=== PATIENT | female | born 1970 | race Caucasian/White ===

== ENCOUNTER 2020-02-25 00:03 | Inpatient (IN) | payer MEDICAID, OTHER ==
[~2020-02-25] VITALS: Ht 154.9 cm; Wt 86.5 kg
[~2020-02-25 00:03] MED LIST: HYDR-1475 PO; METF-444 PO; PRAV40TA4 PO
[2020-02-25 01:28] LABS: ANION GAP 8 mmol/L (8-16); CALCIUM, TOTAL 9.3 mg/dL (8.8-10.5); CARBON DIOXIDE 21 mmol/L (22-29); CHLORIDE 99 mmol/L (98-107); CREATININE 2.64 mg/dL (0.60-1.30); GLOMERULAR FILTR. RATE CALC 19 mL/min (>60); GLUCOSE,RANDOM 118 mg/dL (70-110); POTASSIUM 5.1 mmol/L (3.5-5.1); SODIUM SERUM 128 mmol/L (136-145); UREA NITROGEN, BLOOD 65 mg/dL (7-18)
[2020-02-25 01:36] LABS: D-DIMER 0.42 mg/L FEU (0.00-0.50); PROTHROMBIN TIME 10.5 SEC (9.4-11.6)
[2020-02-25] MEDS ORDERED: SODIUM CHLORIDE 0.9% 1,000 ML IV ONE (01:45)
[2020-02-25 01:46] LABS: ALANINE AMINOTRANSFERASE 107 U/L (12-78); ALBUMIN 3.3 g/dL (3.4-5.0); ALKALINE PHOSPHATASE 249 U/L (46-116); ASPARTATE AMINOTRANSFERASE 72 U/L (15-37); BILIRUBIN,TOTAL 0.3 mg/dL (0.1-1.0); C-REACTIVE PROTEIN QUANT 6.65 mg/dL (0.00-0.30); CREATINE KINASE, TOTAL ONLY 49 U/L (26-192); FERRITIN 548 ng/mL (8-252); HCG,QUANTITATIVE 1 mIU/mL (0-6); LACTATE DEHYDROGENASE 305 U/L (81-234)
[2020-02-25] MEDS ORDERED: FAMOTIDINE 10 MG/ML 2 ML VIAL IVP ONE (02:00)
[2020-02-25] MEDS ORDERED: PB/HYOSCY/ATR/SCOP/LIDO/MAALOX 55 ML BOTTLE PO ONE (02:00)
[2020-02-25] MEDS ORDERED: ACETAMINOPHEN 500 MG TABLET PO ONE (02:00)
[2020-02-25 02:04] LABS: B-TYPE NATRIURETIC PEPTIDE < 5 pg/mL (0-100)
[2020-02-25] MEDS ORDERED: ACETAMINOPHEN 325 MG TABLET PO PRN (02:15)
[2020-02-25] MEDS ORDERED: ONDANSETRON HCL 4 MG/2 ML VIAL IVP PRN (02:15)
[2020-02-25 02:27] LABS: BASOPHILS % (AUTO) 0.3 % (0.0-2.0); EOSINOPHILS % (AUTO) 0 % (1.0-6.0); HEMATOCRIT 41.4 % (36-46); HEMOGLOBIN 14.2 g/dL (12.0-16.0); LYMPHOCYTES # (AUTO) 1.4 K/uL (1.0-4.8); LYMPHOCYTES % (AUTO) 20.6 % (22.0-44.0); MEAN CORPUSCULAR HGB CONC 34.3 G/dL (31.0-37.0); MEAN CORPUSCULAR VOLUME 87 fL (80-100); MONOCYTES # (AUTO) 0.5 K/uL (0.1-1.0); MONOCYTES % (AUTO) 6.9 % (2.0-9.0); NEUTROPHILS # (AUTO) 4.9 K/uL (1.8-7.7); NEUTROPHILS % (AUTO) 72.2 % (40.0-70.0); PLATELET COUNT (AUTO) 325 K/uL (150-450); RED BLOOD CELL COUNT(AUTO) 4.73 MIL/uL (4.00-5.20)
[2020-02-25 04:22] VITALS: BP 128/75
[2020-02-25 07:35] VITALS: BP 110/72
[2020-02-25 12:50] VITALS: BP 112/68
[2020-02-25 16:35] VITALS: BP 124/65
[2020-02-25] MEDS ORDERED: DEXAMETHASONE 4 MG TABLET PO ONE (16:45)
[2020-02-25 19:33] VITALS: BP 137/96
[2020-02-25] MEDS: DEXAMETHASONE SOD PHOS 4 MG/ML VIAL IVP SCH (22:47)
[2020-02-25] MEDS: HYDROCHLOROTHIAZIDE 25 MG TABLET PO SCH (22:47)
[2020-02-25] MEDS: PRAVASTATIN SODIUM 40 MG TABLET PO SCH (22:47)
[2020-02-26 00:16] VITALS: BP 130/76
[2020-02-26 04:20] VITALS: BP 114/86
[2020-02-26 06:36] LABS: BASOPHILS % (AUTO) 0.3 % (0.0-2.0); EOSINOPHILS % (AUTO) 0 % (1.0-6.0); HEMATOCRIT 36.8 % (36-46); HEMOGLOBIN 12.4 g/dL (12.0-16.0); LYMPHOCYTES # (AUTO) 0.7 K/uL (1.0-4.8); LYMPHOCYTES % (AUTO) 34.9 % (22.0-44.0); MEAN CORPUSCULAR HEMOGLOBIN 29.6 pg (26.0-34.0); MEAN CORPUSCULAR HGB CONC 33.6 G/dL (31.0-37.0); MEAN CORPUSCULAR VOLUME 88 fL (80-100); MONOCYTES # (AUTO) 0.1 K/uL (0.1-1.0); MONOCYTES % (AUTO) 7.7 % (2.0-9.0); NEUTROPHILS # (AUTO) 1.1 K/uL (1.8-7.7); NEUTROPHILS % (AUTO) 57.1 % (40.0-70.0); PLATELET COUNT (AUTO) 348 K/uL (150-450); RED BLOOD CELL COUNT(AUTO) 4.18 MIL/uL (4.00-5.20); RED CELL DISTRIBUTION WIDTH 12.5 % (11.5-14.5)
[2020-02-26 07:20] VITALS: BP 115/79
[2020-02-26 07:30] LABS: ALBUMIN 2.7 g/dL (3.4-5.0); BILIRUBIN,TOTAL 0.2 mg/dL (0.1-1.0); C-REACTIVE PROTEIN QUANT 7.42 mg/dL (0.00-0.30); CALCIUM, TOTAL 9.2 mg/dL (8.8-10.5); CREATININE 2.17 mg/dL (0.60-1.30)
[2020-02-26 07:39] LABS: POTASSIUM 6.1 mmol/L (3.5-5.1)
[2020-02-26] MEDS: HYDROCHLOROTHIAZIDE 25 MG TABLET PO SCH (08:04)
[2020-02-26] MEDS: DEXAMETHASONE SOD PHOS 4 MG/ML VIAL IVP SCH (08:05)
[2020-02-26] MEDS ORDERED: SODIUM POLYSTYRENE SULFONATE 15 GM/60 ML SUSPENSION BOTTLE PO ONE (08:30)
[2020-02-26 10:35] VITALS: BP 122/78
[2020-02-26] MEDS: SODIUM CHLORIDE 0.9% 500 ML IV SCH ×2 (12:59→22:06)
[2020-02-26 15:14] VITALS: BP_SYST 122; BP_SYST 137; BP_DIAS 62; BP_DIAS 74
[2020-02-26 20:42] VITALS: BP 143/86
[2020-02-26] MEDS: PRAVASTATIN SODIUM 40 MG TABLET PO SCH (22:06)
[2020-02-26] MEDS ORDERED: ACETAMINOPHEN 325 MG TABLET PO PRN (22:45)
[2020-02-27] MEDS: SODIUM CHLORIDE 0.9% 500 ML IV SCH (00:20)
[2020-02-27 00:39] VITALS: BP 137/85
[2020-02-27 04:49] VITALS: BP 125/73
[2020-02-27 05:39] LABS: APPEARANCE,URINE CLOUDY (CLEAR); BILIRUBIN,URINE NEGATIVE (NEGATIVE); CREATININE,URINE RANDOM 49.4 mg/dL (30.0-125.0); GLUCOSE, URINE (UA) NEGATIVE (NEGATIVE); KETONES,URINE NEGATIVE (NEGATIVE); LEUKOCYTE ESTERASE ,URINE SMALL (NEGATIVE); NITRATE,URINE NEGATIVE (NEGATIVE); OCCULT BLOOD,URINE SMALL (NEGATIVE); PH,URINE 5.5 (5.0-8.0); PROTEIN,URINE SEE CONFIRM (NEGATIVE); PROTEIN,URINE RANDOM 135 mg/dL (0-11.9); SODIUM,URINE RANDOM 60 mmol/l (20-110); UREA NITROGEN,URINE RANDOM 478 mg/dL (350-1000); UROBILINOGEN,URINE 0.2 mg/dL (<=1.0)
[2020-02-27 05:46] LABS: SULFOSALICYLIC ACID,URINE 3+ (Negative)
[2020-02-27 05:47] LABS: BACTERIA,URINE Moderate /HPF (None Seen); SQUAMOUS EPITHELIAL CELL,UR Few /LPF (None Seen)
[2020-02-27 06:11] LABS: BASOPHILS % (AUTO) 0.2 % (0.0-2.0); EOSINOPHILS % (AUTO) 0 % (1.0-6.0); HEMATOCRIT 33.6 % (36-46); HEMOGLOBIN 11.4 g/dL (12.0-16.0); LYMPHOCYTES # (AUTO) 1.4 K/uL (1.0-4.8); MEAN CORPUSCULAR HEMOGLOBIN 29.5 pg (26.0-34.0); MEAN CORPUSCULAR VOLUME 87 fL (80-100); MONOCYTES # (AUTO) 0.7 K/uL (0.1-1.0); MONOCYTES % (AUTO) 10.3 % (2.0-9.0); NEUTROPHILS % (AUTO) 70.5 % (40.0-70.0); PLATELET COUNT (AUTO) 400 K/uL (150-450); RED BLOOD CELL COUNT(AUTO) 3.87 MIL/uL (4.00-5.20); RED CELL DISTRIBUTION WIDTH 12.8 % (11.5-14.5)
[2020-02-27] MEDS: SODIUM CHLORIDE 0.9% 1,000 ML IV SCH ×2 (06:12→17:50)
[2020-02-27 07:28] LABS: ALBUMIN 2.4 g/dL (3.4-5.0); BILIRUBIN,TOTAL 0.2 mg/dL (0.1-1.0); C-REACTIVE PROTEIN QUANT 2.63 mg/dL (0.00-0.30); CALCIUM, TOTAL 8.4 mg/dL (8.8-10.5); CREATININE 1.99 mg/dL (0.60-1.30); POTASSIUM 4.2 mmol/L (3.5-5.1); TOTAL PROTEIN, SERUM 7.3 g/dL (6.4-8.2)
[2020-02-27] MEDS: DEXAMETHASONE SOD PHOS 4 MG/ML VIAL IVP SCH (09:13)
[2020-02-27 09:51] VITALS: BP 121/73
[2020-02-27 12:55] VITALS: BP 124/67
[2020-02-27 16:03] VITALS: BP 130/87
[2020-02-27 20:12] VITALS: BP 132/74
[2020-02-27] MEDS: PRAVASTATIN SODIUM 40 MG TABLET PO SCH (21:10)
[2020-02-28 00:10] VITALS: BP 150/93
[2020-02-28 05:10] VITALS: BP 140/71
[2020-02-28 07:37] LABS: BASOPHILS % (AUTO) 1.4 % (0.0-2.0); EOSINOPHILS % (AUTO) 0 % (1.0-6.0); HEMATOCRIT 33.8 % (36-46); HEMOGLOBIN 11.6 g/dL (12.0-16.0); LYMPHOCYTES # (AUTO) 1.8 K/uL (1.0-4.8); LYMPHOCYTES % (AUTO) 29.5 % (22.0-44.0); MEAN CORPUSCULAR HEMOGLOBIN 29.9 pg (26.0-34.0); MEAN CORPUSCULAR HGB CONC 34.3 G/dL (31.0-37.0); MEAN CORPUSCULAR VOLUME 87 fL (80-100); MONOCYTES # (AUTO) 0.8 K/uL (0.1-1.0); MONOCYTES % (AUTO) 12.5 % (2.0-9.0); NEUTROPHILS # (AUTO) 3.5 K/uL (1.8-7.7); NEUTROPHILS % (AUTO) 56.6 % (40.0-70.0); PLATELET COUNT (AUTO) 485 K/uL (150-450); RED BLOOD CELL COUNT(AUTO) 3.89 MIL/uL (4.00-5.20); RED CELL DISTRIBUTION WIDTH 12.8 % (11.5-14.5)
[2020-02-28 08:04] LABS: ALBUMIN 2.7 g/dL (3.4-5.0); BILIRUBIN,TOTAL 0.2 mg/dL (0.1-1.0); C-REACTIVE PROTEIN QUANT 1.75 mg/dL (0.00-0.30); CALCIUM, TOTAL 8.7 mg/dL (8.8-10.5); CREATININE 1.82 mg/dL (0.60-1.30); MAGNESIUM 1.9 mg/dL (1.80-2.40); PHOSPHORUS 3.1 mg/dL (2.5-4.9); POTASSIUM 4.2 mmol/L (3.5-5.1); TOTAL PROTEIN, SERUM 7.5 g/dL (6.4-8.2)
[2020-02-28 08:10] VITALS: BP 130/76
[2020-02-28] MEDS: DEXAMETHASONE SOD PHOS 4 MG/ML VIAL IVP SCH (08:19)
[2020-02-28 11:23] VITALS: BP 137/85
[2020-02-28] MEDS ORDERED: INFLUENZA VIRUS VACCINE QVS 2020-21 (6MO+)/PF 60 MCG/0.5 ML SYRINGE IM ONE (12:00)
== END 2020-02-28 19:10 | disposition home or self-care (01) | DRG 178 ==
LOC: EMS 00:05 → 5N 02:00
PROVIDERS: ADMIT Hospitalist; ATTEND Hospitalist
DX: U07.1 COVID-19 (principal); E87.1 Hypo-osmolality and hyponatremia; N17.9 Acute kidney failure, unspecified; E44.0 Moderate protein-calorie malnutrition; E78.5 Hyperlipidemia, unspecified; E11.22 Type 2 diabetes mellitus with diabetic chronic kidney disease; E87.5 Hyperkalemia; I12.9 Hypertensive chronic kidney disease with stage 1 through stage 4 chronic kidney disease, or unspecified chronic kidney disease; N18.9 Chronic kidney disease, unspecified; Z68.36 Body mass index [BMI] 36.0-36.9, adult; Z23 Encounter for immunization
CPT/HCPCS: 76770; 82570; 82728; 83615; 83735; 84100; 84132; 84145; 84156; 84300; 84540; 85379; 86140; 87086; 90686; 93005; J1100; J3490; J7030; J7040; J8540; 36415-L1; 36415-TC; 71045-TC; G0008

== ENCOUNTER 2020-05-15 08:38 | Emergency (ER) | payer MEDICAID ==
[~2020-05-15] VITALS: Ht 152.4 cm; Wt 86.4 kg
[~2020-05-15 08:38] MED LIST changes: -HYDR-1475 PO; +HYDR25TA2 PO
[2020-05-15] MEDS ORDERED: AMLO-257 PO (08:43)
[2020-05-15] MEDS ORDERED: KETOROLAC TROMETHAMINE 60 MG/2 ML VIAL IM ONE (09:45)
[2020-05-15] MEDS ORDERED: HYDROCODONE/ACETAMINOPHEN 5-325 MG TABLET PO ONE ×2 (09:45→10:45)
[2020-05-15 10:43] VITALS: BP 148/91
== END 2020-05-15 10:52 | disposition home or self-care (01) ==
LOC: EMS 08:38
DX: S30.0XXA Contusion of lower back and pelvis, initial encounter (principal); S90.32XA Contusion of left foot, initial encounter; W19.XXXA Unspecified fall, initial encounter; Y93.89 Activity, other specified; Y92.89 Other specified places as the place of occurrence of the external cause; Y99.8 Other external cause status
CPT/HCPCS: 72100; 72170; 73630; 82962; 96372; 99284; J1885

== ENCOUNTER 2020-12-23 17:56 | Emergency (ER) | payer MEDICAID ==
[~2020-12-23] VITALS: Ht 152.4 cm; Wt 90.9 kg
[~2020-12-23 17:56] MED LIST changes: +ACET-2247 PO; +ALLO-45 PO; +AMLO-257 PO; -HYDR25TA2 PO; +LEVO750T68 PO; +PRED20 PO
[2020-12-23 19:45] VITALS: BP 139/88
[2020-12-23 20:24] LABS: COVID AG,FIA SOURCE NASOPHARYNGEAL
== END 2020-12-23 20:00 | disposition home or self-care (01) ==
LOC: EMS 17:56
DX: J02.9 Acute pharyngitis, unspecified (principal); Z20.822 Contact with and (suspected) exposure to COVID-19
CPT/HCPCS: 82962; 87426; 99283; U0003

== ENCOUNTER 2021-02-20 10:58 | Emergency (ER) | payer MEDICAID ==
[~2021-02-20] VITALS: Ht 152.4 cm; Wt 86.0 kg
[2021-02-20 11:12] VITALS: BP 169/56
[2021-02-20 11:38] LABS: BASOPHILS % (AUTO) 0.5 % (0.0-2.0); EOSINOPHILS % (AUTO) 0.6 % (1.0-6.0); HEMATOCRIT 40.7 % (36-46); HEMOGLOBIN 13.3 g/dL (12.0-16.0); LYMPHOCYTES # (AUTO) 2.8 K/uL (1.0-4.8); LYMPHOCYTES % (AUTO) 32.9 % (22.0-44.0); MEAN CORPUSCULAR HEMOGLOBIN 29.5 pg (26.0-34.0); MEAN CORPUSCULAR HGB CONC 32.7 G/dL (31.0-37.0); MEAN CORPUSCULAR VOLUME 90 fL (80-100); MONOCYTES # (AUTO) 0.7 K/uL (0.1-1.0); MONOCYTES % (AUTO) 8.4 % (2.0-9.0); NEUTROPHILS # (AUTO) 4.9 K/uL (1.8-7.7); NEUTROPHILS % (AUTO) 57.6 % (40.0-70.0); PLATELET COUNT (AUTO) 340 K/uL (150-450); RED CELL DISTRIBUTION WIDTH 13.4 % (11.5-14.5)
[2021-02-20 11:44] LABS: ANION GAP 8 mmol/L (8-16); CALCIUM, TOTAL 9.4 mg/dL (8.8-10.5); CARBON DIOXIDE 24 mmol/L (22-29); CHLORIDE 110 mmol/L (98-107); CREATININE 2.14 mg/dL (0.60-1.30); GLOMERULAR FILTR. RATE CALC 24 mL/min (>60); GLUCOSE,RANDOM 105 mg/dL (70-110); POTASSIUM 5.4 mmol/L (3.5-5.1); SODIUM SERUM 142 mmol/L (136-145); UREA NITROGEN, BLOOD 67 mg/dL (7-18)
[2021-02-20 11:57] LABS: ALANINE AMINOTRANSFERASE 23 U/L (12-78); ALBUMIN 3.8 g/dL (3.4-5.0); ALKALINE PHOSPHATASE 76 U/L (46-116); ASPARTATE AMINOTRANSFERASE 12 U/L (15-37); BILIRUBIN,TOTAL 0.2 mg/dL (0.1-1.0); HCG,QUANTITATIVE < 1 mIU/mL (0-6); TOTAL PROTEIN, SERUM 8.2 g/dL (6.4-8.2)
[2021-02-20] MEDS ORDERED: ONDANSETRON HCL 4 MG TABLET PO ONE (12:30)
[2021-02-20] MEDS ORDERED: KETOROLAC TROMETHAMINE 60 MG/2 ML VIAL IM ONE (12:30)
[2021-02-20] MEDS ORDERED: CEPHALEXIN MONOHYDRATE 500 MG CAPSULE PO ONE (12:30)
[2021-02-20 12:54] LABS: APPEARANCE,URINE CLOUDY (CLEAR); BILIRUBIN,URINE NEGATIVE (NEGATIVE); GLUCOSE, URINE (UA) NEGATIVE (NEGATIVE); KETONES,URINE NEGATIVE (NEGATIVE); LEUKOCYTE ESTERASE ,URINE SMALL (NEGATIVE); NITRATE,URINE NEGATIVE (NEGATIVE); OCCULT BLOOD,URINE TRACE (NEGATIVE); PROTEIN,URINE SEE CONFIRM (NEGATIVE); UROBILINOGEN,URINE 0.2 mg/dL (<=1.0)
[2021-02-20 13:18] LABS: BACTERIA,URINE None Seen /HPF (None Seen); RBC,URINE None Seen /HPF (0-2); SQUAMOUS EPITHELIAL CELL,UR Moderate /LPF (None Seen); SULFOSALICYLIC ACID,URINE 1+ (Negative); WBC,URINE 0-2 /HPF (0-5)
== END 2021-02-20 15:20 | disposition home or self-care (01) ==
LOC: EMS 10:58
DX: I13.0 Hypertensive heart and chronic kidney disease with heart failure and stage 1 through stage 4 chronic kidney disease, or unspecified chronic kidney disease (principal); E11.22 Type 2 diabetes mellitus with diabetic chronic kidney disease; N18.9 Chronic kidney disease, unspecified; I50.9 Heart failure, unspecified; M79.642 Pain in left hand
CPT/HCPCS: 29125; 36415; 73130; 74176; 80053; 81001; 84702; 85025; 96372; 99284; J1885; Q0162; 81002

== ENCOUNTER 2021-10-09 13:32 | Emergency (ER) | payer MEDICAID ==
[~2021-10-09] VITALS: Ht 160 cm; Wt 86.4 kg
[~2021-10-09 13:32] MED LIST changes: +PRED-554 PO; -PRED20 PO
[2021-10-09] MEDS ORDERED: GLIP5TAB12 PO (13:39)
[2021-10-09] MEDS ORDERED: FURO40 PO (13:39)
[2021-10-09] MEDS ORDERED: LISI-894 PO (13:39)
[2021-10-09] MEDS ORDERED: GLIP2.5T2 PO (14:05)
[2021-10-09] MEDS ORDERED: ATOR40TA71 PO (14:05)
[2021-10-09 16:02] VITALS: BP 136/58
[2021-10-09] MEDS ORDERED: CEPH-558 PO (16:20)
[2021-10-09] MEDS ORDERED: ACET-3385 PO (16:20)
[2021-10-09] MEDS ORDERED: CYCL-448 PO (16:20)
[2021-10-09] MEDS ORDERED: ACETAMINOPHEN 500 MG TABLET PO ONE (16:30)
[2021-10-09] MEDS ORDERED: CYCLOBENZAPRINE HCL 10 MG TABLET PO ONE (16:30)
== END 2021-10-09 17:02 | disposition home or self-care (01) ==
LOC: EMS 13:32
DX: L03.115 Cellulitis of right lower limb (principal); M54.50 Low back pain, unspecified; I11.0 Hypertensive heart disease with heart failure; I50.9 Heart failure, unspecified; E11.9 Type 2 diabetes mellitus without complications; Z79.899 Other long term (current) drug therapy
CPT/HCPCS: 82948; 99283

== ENCOUNTER 2021-12-03 08:54 | Emergency (ER) | payer MEDICAID ==
[~2021-12-03] VITALS: Ht 157.5 cm; Wt 90.9 kg
[~2021-12-03 08:54] MED LIST changes: -ACET-2247 PO; +ACET-3385 PO; -ALLO-45 PO; -AMLO-257 PO; +ATOR40TA71 PO; +CEPH-558 PO; +CYCL-448 PO; +FURO40 PO; +GLIP2.5T2 PO; -LEVO750T68 PO; +LISI-894 PO; -METF-444 PO; -PRAV40TA4 PO; -PRED-554 PO
[2021-12-03] MEDS ORDERED: FURO40TA5 PO (09:09)
[2021-12-03] MEDS ORDERED: LISI20TA24 PO (09:09)
[2021-12-03] MEDS ORDERED: SEMA0.25 SQ (09:09)
[2021-12-03] MEDS ORDERED: CYCL10TA16 PO (09:09)
[2021-12-03] MEDS ORDERED: SODI5POW3 PO (09:09)
[2021-12-03] MEDS ORDERED: HYDROCODONE/ACETAMINOPHEN 5-325 MG TABLET PO ONE (11:15)
[2021-12-03 11:17] LABS: BASOPHILS % (AUTO) 0.3 % (0.0-2.0); EOSINOPHILS % (AUTO) 0 % (1.0-6.0); HEMATOCRIT 37.2 % (36-46); HEMOGLOBIN 12.2 g/dL (12.0-16.0); LYMPHOCYTES # (AUTO) 2.6 K/uL (1.0-4.8); LYMPHOCYTES % (AUTO) 35.5 % (22.0-44.0); MEAN CORPUSCULAR HEMOGLOBIN 29.2 pg (26.0-34.0); MEAN CORPUSCULAR HGB CONC 32.7 G/dL (31.0-37.0); MEAN CORPUSCULAR VOLUME 89 fL (80-100); MONOCYTES # (AUTO) 0.8 K/uL (0.1-1.0); MONOCYTES % (AUTO) 10.4 % (2.0-9.0); NEUTROPHILS # (AUTO) 3.9 K/uL (1.8-7.7); NEUTROPHILS % (AUTO) 53.8 % (40.0-70.0); PLATELET COUNT (AUTO) 326 K/uL (150-450); RED BLOOD CELL COUNT(AUTO) 4.17 MIL/uL (4.00-5.20); RED CELL DISTRIBUTION WIDTH 12.9 % (11.5-14.5)
[2021-12-03 11:36] LABS: APPEARANCE,URINE HAZY (CLEAR); BILIRUBIN,URINE NEGATIVE (NEGATIVE); GLUCOSE, URINE (UA) NEGATIVE (NEGATIVE); KETONES,URINE NEGATIVE (NEGATIVE); LEUKOCYTE ESTERASE ,URINE NEGATIVE (NEGATIVE); NITRATE,URINE NEGATIVE (NEGATIVE); OCCULT BLOOD,URINE NEGATIVE (NEGATIVE); PH,URINE 5.5 (5.0-8.0); PROTEIN,URINE 30-70 mg/dL (NEGATIVE); SPECIFIC GRAVITIY, URINE 1.011 (1.003-1.030); UROBILINOGEN,URINE <=1.0 mg/dL (<=1.0)
[2021-12-03 11:54] LABS: BACTERIA,URINE None Seen /HPF (None Seen); RBC,URINE None Seen /HPF (0-2); SQUAMOUS EPITHELIAL CELL,UR Many /LPF (None Seen); WBC,URINE None Seen /HPF (0-5)
[2021-12-03 12:00] LABS: CALCIUM, TOTAL 9.3 mg/dL (8.8-10.5); CREATININE 2.25 mg/dL (0.60-1.30); POTASSIUM 4.7 mmol/L (3.5-5.1)
[2021-12-03 12:06] LABS: ALBUMIN 3.6 g/dL (3.4-5.0); BILIRUBIN,TOTAL 0.2 mg/dL (0.1-1.0); TOTAL PROTEIN, SERUM 7.6 g/dL (6.4-8.2)
[2021-12-03 12:30] VITALS: BP 149/87
[2021-12-03 12:34] LABS: URIC ACID 11.7 mg/dL (2.6-7.2)
[2021-12-03] MEDS ORDERED: HYDR-4723 PO (12:44)
== END 2021-12-03 12:59 | disposition home or self-care (01) ==
LOC: EMS 08:55
DX: M79.642 Pain in left hand (principal); I13.0 Hypertensive heart and chronic kidney disease with heart failure and stage 1 through stage 4 chronic kidney disease, or unspecified chronic kidney disease; N18.9 Chronic kidney disease, unspecified; I50.9 Heart failure, unspecified; E11.9 Type 2 diabetes mellitus without complications
CPT/HCPCS: 80053; 81001; 84484; 84550; 85025; 99284

== ENCOUNTER 2022-07-18 20:28 | Emergency (ER) | payer MEDICAID, OTHER ==
[~2022-07-18] VITALS: Ht 162.6 cm; Wt 95.5 kg
[~2022-07-18 20:28] MED LIST changes: -CYCL-448 PO; +CYCL10TA16 PO; -FURO40 PO; +FURO40TA5 PO; -GLIP2.5T2 PO; +HYDR-4723 PO; -LISI-894 PO; +LISI20TA24 PO; +SEMA0.25 SQ; +SODI5POW3 PO
[2022-07-18] MEDS ORDERED: AMLO-257 PO (20:36)
[2022-07-18] MEDS ORDERED: DULO-114 PO (20:36)
[2022-07-18] MEDS ORDERED: ALLO-45 PO (20:36)
[2022-07-18 21:11] LABS: BASOPHILS % (AUTO) 0.5 % (0.0-2.0); EOSINOPHILS % (AUTO) 0.1 % (1.0-6.0); HEMATOCRIT 35.2 % (36-46); HEMOGLOBIN 11.5 g/dL (12.0-16.0); LYMPHOCYTES # (AUTO) 2.8 K/uL (1.0-4.8); MEAN CORPUSCULAR HEMOGLOBIN 29.1 pg (26.0-34.0); MEAN CORPUSCULAR HGB CONC 32.6 G/dL (31.0-37.0); MEAN CORPUSCULAR VOLUME 89 fL (80-100); MONOCYTES # (AUTO) 0.8 K/uL (0.1-1.0); MONOCYTES % (AUTO) 9.7 % (2.0-9.0); NEUTROPHILS # (AUTO) 4.2 K/uL (1.8-7.7); NEUTROPHILS % (AUTO) 53.7 % (40.0-70.0); PLATELET COUNT (AUTO) 304 K/uL (150-450); RED BLOOD CELL COUNT(AUTO) 3.94 MIL/uL (4.00-5.20)
[2022-07-18 21:21] LABS: CALCIUM, TOTAL 9.5 mg/dL (8.8-10.5); CREATININE 2.75 mg/dL (0.60-1.30)
[2022-07-18 21:27] LABS: ALBUMIN 3.9 g/dL (3.4-5.0); BILIRUBIN,TOTAL 0.4 mg/dL (0.1-1.0); TOTAL PROTEIN, SERUM 8.1 g/dL (6.4-8.2)
[2022-07-18] MEDS ORDERED: DEXAMETHASONE SOD PHOS 4 MG/ML 5 ML VIAL IM ONE (22:45)
[2022-07-18] MEDS ORDERED: HYDROCODONE/ACETAMINOPHEN 5-325 MG TABLET PO ONE (23:30)
[2022-07-18 23:31] LABS: APPEARANCE,URINE CLEAR (CLEAR); BILIRUBIN,URINE NEGATIVE (NEGATIVE); GLUCOSE, URINE (UA) NEGATIVE (NEGATIVE); KETONES,URINE NEGATIVE (NEGATIVE); LEUKOCYTE ESTERASE ,URINE NEGATIVE (NEGATIVE); NITRATE,URINE NEGATIVE (NEGATIVE); OCCULT BLOOD,URINE NEGATIVE (NEGATIVE); PROTEIN,URINE NEGATIVE (NEGATIVE); UROBILINOGEN,URINE <=1.0 mg/dL (<=1.0)
[2022-07-18 23:39] LABS: BACTERIA,URINE None Seen /HPF (None Seen); RBC,URINE None Seen /HPF (0-2); SQUAMOUS EPITHELIAL CELL,UR Few /LPF (None Seen); WBC,URINE 0-2 /HPF (0-5)
[2022-07-18] MEDS ORDERED: ALLOPURINOL 300 MG TABLET PO ONE (23:45)
[2022-07-19 00:34] VITALS: BP 124/72
== END 2022-07-19 00:49 | disposition home or self-care (01) ==
LOC: EMS 20:28
DX: M10.072 Idiopathic gout, left ankle and foot (principal); E11.9 Type 2 diabetes mellitus without complications; I11.0 Hypertensive heart disease with heart failure; I50.9 Heart failure, unspecified
CPT/HCPCS: 99283; 80053; 81001; 82962; 83690; 84484; 84550; 85025; 36415; 96372; J1100

== ENCOUNTER 2022-10-10 20:14 | Emergency (ER) | payer OTHER ==
[~2022-10-10] VITALS: Ht 157.5 cm; Wt 81.8 kg
[~2022-10-10 20:14] MED LIST changes: -ACET-3385 PO; +ALLO-45 PO; +AMLO-257 PO; -CEPH-558 PO; -CYCL10TA16 PO; +DULO-114 PO; -HYDR-4723 PO
[2022-10-10 20:21] VITALS: TEMP 98.4
[2022-10-10 23:08] LABS: BASOPHILS % (AUTO) 0.5 % (0.0-2.0); EOSINOPHILS % (AUTO) 0.1 % (1.0-6.0); HEMATOCRIT 32.5 % (36-46); HEMOGLOBIN 10.7 g/dL (12.0-16.0); LYMPHOCYTES # (AUTO) 2.9 K/uL (1.0-4.8); LYMPHOCYTES % (AUTO) 37.9 % (22.0-44.0); MEAN CORPUSCULAR HGB CONC 32.8 G/dL (31.0-37.0); MEAN CORPUSCULAR VOLUME 88 fL (80-100); MONOCYTES # (AUTO) 0.7 K/uL (0.1-1.0); MONOCYTES % (AUTO) 9.4 % (2.0-9.0); NEUTROPHILS % (AUTO) 52.1 % (40.0-70.0); PLATELET COUNT (AUTO) 291 K/uL (150-450); RED BLOOD CELL COUNT(AUTO) 3.68 MIL/uL (4.00-5.20)
[2022-10-10 23:17] LABS: CALCIUM, TOTAL 9.7 mg/dL (8.8-10.5); CREATININE 3.54 mg/dL (0.60-1.30); POTASSIUM 5.1 mmol/L (3.5-5.1)
[2022-10-10 23:23] LABS: ALBUMIN 3.8 g/dL (3.4-5.0); BILIRUBIN,TOTAL 0.3 mg/dL (0.1-1.0); TOTAL PROTEIN, SERUM 7.9 g/dL (6.4-8.2)
[2022-10-10 23:24] LABS: APPEARANCE,URINE CLEAR (CLEAR); BILIRUBIN,URINE NEGATIVE (NEGATIVE); GLUCOSE, URINE (UA) NEGATIVE (NEGATIVE); KETONES,URINE NEGATIVE (NEGATIVE); LEUKOCYTE ESTERASE ,URINE NEGATIVE (NEGATIVE); NITRATE,URINE NEGATIVE (NEGATIVE); OCCULT BLOOD,URINE NEGATIVE (NEGATIVE); PROTEIN,URINE NEGATIVE (NEGATIVE); SPECIFIC GRAVITIY, URINE 1.011 (1.003-1.030); UROBILINOGEN,URINE <=1.0 mg/dL (<=1.0)
[2022-10-10 23:25] LABS: LACTIC ACID 0.4 mmol/L (0.4-2.0)
[2022-10-10 23:49] LABS: BACTERIA,URINE None Seen /HPF (None Seen); RBC,URINE None Seen /HPF (0-2); SQUAMOUS EPITHELIAL CELL,UR Few /LPF (None Seen); WBC,URINE None Seen /HPF (0-5)
[2022-10-11] VITALS: BP 125/52; PULSE 65; RESP 15
[2022-10-11] MEDS ORDERED: ACETAMINOPHEN 500 MG TABLET PO ONE
== END 2022-10-11 00:43 | disposition home or self-care (01) ==
LOC: EMS 20:15
DX: N18.9 Chronic kidney disease, unspecified (principal); M54.50 Low back pain, unspecified; M10.9 Gout, unspecified; I11.0 Hypertensive heart disease with heart failure; I50.9 Heart failure, unspecified; E11.9 Type 2 diabetes mellitus without complications
CPT/HCPCS: 80053; 81001; 83605; 83690; 84484; 85025; 99283

== ENCOUNTER 2023-03-03 17:32 | Emergency (ER) | payer OTHER ==
[~2023-03-03] VITALS: Ht 157.5 cm; Wt 84.1 kg
[~2023-03-03 17:32] MED LIST changes: +ACET-66 PO; -ALLO-45 PO; -FURO40TA5 PO; -LISI20TA24 PO; +PRED-554 PO; -SEMA0.25 SQ; +SEMA0.258 SQ
[2023-03-03 17:53] VITALS: TEMP 98.9
[2023-03-03 18:09] LABS: BASOPHILS % (AUTO) 0.4 % (0.0-2.0); EOSINOPHILS % (AUTO) 0 % (1.0-6.0); HEMATOCRIT 36.7 % (36-46); HEMOGLOBIN 12.4 g/dL (12.0-16.0); LYMPHOCYTES # (AUTO) 2.2 K/uL (1.0-4.8); LYMPHOCYTES % (AUTO) 37.1 % (22.0-44.0); MEAN CORPUSCULAR HEMOGLOBIN 30.6 pg (26.0-34.0); MEAN CORPUSCULAR HGB CONC 33.8 G/dL (31.0-37.0); MEAN CORPUSCULAR VOLUME 90 fL (80-100); MONOCYTES # (AUTO) 0.6 K/uL (0.1-1.0); MONOCYTES % (AUTO) 10.1 % (2.0-9.0); NEUTROPHILS % (AUTO) 52.4 % (40.0-70.0); PLATELET COUNT (AUTO) 280 K/uL (150-450); RED BLOOD CELL COUNT(AUTO) 4.06 MIL/uL (4.00-5.20); RED CELL DISTRIBUTION WIDTH 12.8 % (11.5-14.5); WHITE BLOOD COUNT (AUTO) 5.8 K/uL (4.5-11.0)
[2023-03-03 18:17] LABS: CALCIUM, TOTAL 9.9 mg/dL (8.8-10.5); CREATININE 2.31 mg/dL (0.60-1.30)
[2023-03-03 18:23] LABS: ALBUMIN 3.8 g/dL (3.4-5.0); BILIRUBIN,TOTAL 0.2 mg/dL (0.1-1.0); TOTAL PROTEIN, SERUM 8.3 g/dL (6.4-8.2)
[2023-03-03 18:38] LABS: TROPONIN I-HIGH SENSITIVITY 7 ng/L (<51)
[2023-03-03] MEDS ORDERED: ACETAMINOPHEN/CODEINE 300-30 MG TABLET PO ONE (19:45)
[2023-03-03] MEDS ORDERED: OMEPRAZOLE 20 MG CAPSULE PO ONE (19:45)
[2023-03-03] MEDS ORDERED: ACET-2080 PO (19:46)
[2023-03-03] MEDS ORDERED: OMEP20 PO (19:46)
[2023-03-03 20:00] VITALS: BP 119/71; PULSE 79; RESP 17
== END 2023-03-03 21:38 | disposition home or self-care (01) ==
LOC: EMS 17:39
DX: R07.89 Other chest pain (principal); E11.22 Type 2 diabetes mellitus with diabetic chronic kidney disease; N18.9 Chronic kidney disease, unspecified; I11.0 Hypertensive heart disease with heart failure; I50.9 Heart failure, unspecified; Z98.890 Other specified postprocedural states
CPT/HCPCS: 71045; 80053; 84484; 85025; 93005; 99285; 36415-L1; 36415-TC

== ENCOUNTER 2023-05-02 17:08 | Emergency (ER) | payer OTHER ==
[~2023-05-02] VITALS: Ht 157.5 cm; Wt 79.5 kg
[~2023-05-02 17:08] MED LIST changes: +ACET-2080 PO; +OMEP20 PO
[2023-05-02 17:36] VITALS: BP 163/98; PULSE 94; RESP 18; TEMP 97.9
[2023-05-02] MEDS: OxyCODONE HCL/ACETAMINOPHEN 5-325 MG TABLET PO ONE (19:23)
[2023-05-02] MEDS: DEXAMETHASONE SOD PHOS 4 MG/ML 5 ML VIAL IM ONE (19:23)
== END 2023-05-02 19:45 | disposition admitted as inpatient to this hospital (09) ==
LOC: EMS 17:10
DX: M10.072 Idiopathic gout, left ankle and foot (principal); I11.0 Hypertensive heart disease with heart failure; I50.9 Heart failure, unspecified; E11.9 Type 2 diabetes mellitus without complications; Z98.890 Other specified postprocedural states
CPT/HCPCS: 99285; 82962; 96372; J1100

== ENCOUNTER 2024-07-07 17:45 | Inpatient (IN) | payer OTHER ==
[~2024-07-07] VITALS: Ht 157.5 cm; Wt 90.1 kg
[~2024-07-07 17:45] MED LIST changes: -ACET-2080 PO; +OMEP-148 PO; -OMEP20 PO
[2024-07-07] MEDS ORDERED: SEMA2PEN SQ (18:01)
[2024-07-07] MEDS ORDERED: FURO40TA6 PO (18:01)
[2024-07-07] MEDS ORDERED: LIDO700A30 TP (18:01)
[2024-07-07] MEDS ORDERED: CIPR500T10 PO (18:01)
[2024-07-07] MEDS ORDERED: LOPE-232 PO (18:01)
[2024-07-07 18:26] LABS: COVID AG,FIA SOURCE NASAL SWAB
[2024-07-07 18:28] LABS: BASOPHILS % (AUTO) 0.5 % (0.0-2.0); EOSINOPHILS % (AUTO) 0.3 % (1.0-6.0); LYMPHOCYTES % (AUTO) 31.1 % (22.0-44.0); MEAN CORPUSCULAR HEMOGLOBIN 30.5 pg (26.0-34.0); MEAN CORPUSCULAR HGB CONC 32.4 G/dL (31.0-37.0); MEAN CORPUSCULAR VOLUME 94 fL (80-100); MONOCYTES # (AUTO) 0.6 K/uL (0.1-1.0); MONOCYTES % (AUTO) 9.8 % (2.0-9.0); NEUTROPHILS # (AUTO) 3.8 K/uL (1.8-7.7); NEUTROPHILS % (AUTO) 58.3 % (40.0-70.0); PLATELET COUNT (AUTO) 287 K/uL (150-450); RED BLOOD CELL COUNT(AUTO) 4.26 MIL/uL (4.00-5.20); RED CELL DISTRIBUTION WIDTH 12.6 % (11.5-14.5); WHITE BLOOD COUNT (AUTO) 6.5 K/uL (4.5-11.0)
[2024-07-07 18:38] LABS: CALCIUM, TOTAL 9.2 mg/dL (8.8-10.5); CREATININE 3.91 mg/dL (0.60-1.30); POTASSIUM 5.4 mmol/L (3.5-5.1)
[2024-07-07 18:44] LABS: SARS-COV2 (COVID) ANTIGEN,FIA Negative (Negative)
[2024-07-07 18:45] LABS: INFLUENZA TYPE A NEGATIVE FOR TYPE A (NEGATIVE); INFLUENZA TYPE B NEGATIVE FOR TYPE B (NEGATIVE)
[2024-07-08] MEDS: FAMOTIDINE 20 MG/2 ML VIAL IVP ONE (00:45)
[2024-07-08 01:13] LABS: ALBUMIN 3.7 g/dL (3.4-5.0); BILIRUBIN,DIRECT 0.1 mg/dL (0.00-0.20); BILIRUBIN,TOTAL 0.3 mg/dL (0.1-1.0); TOTAL PROTEIN, SERUM 7.4 g/dL (6.4-8.2)
[2024-07-08] MEDS: SODIUM ZIRCONIUM CYCLOSILICATE 10 GM POWDER PACKET PO ONE (05:37)
[2024-07-08 06:33] LABS: APPEARANCE,URINE CLEAR (CLEAR); BILIRUBIN,URINE NEGATIVE (NEGATIVE); COLOR,URINE COLORLESS (YELLOW); GLUCOSE, URINE (UA) NEGATIVE (NEGATIVE); KETONES,URINE NEGATIVE (NEGATIVE); LEUKOCYTE ESTERASE ,URINE TRACE (NEGATIVE); NITRATE,URINE NEGATIVE (NEGATIVE); OCCULT BLOOD,URINE NEGATIVE (NEGATIVE); PROTEIN,URINE NEGATIVE (NEGATIVE); SPECIFIC GRAVITIY, URINE 1.009 (1.003-1.030); UROBILINOGEN,URINE <=1.0 mg/dL (<=1.0)
[2024-07-08 06:59] LABS: BACTERIA,URINE None Seen /HPF (None Seen); RBC,URINE None Seen /HPF (0-2); WBC,URINE 0-2 /HPF (0-5)
[2024-07-08 07:00] LABS: SQUAMOUS EPITHELIAL CELL,UR Moderate /LPF (None Seen)
[2024-07-08 09:26] VITALS: BP 105/50; PULSE 70; RESP 18; TEMP 98.1; O2SAT 100
[2024-07-08 10:56] VITALS: BP 102/52; PULSE 67; RESP 17; TEMP 98.1; O2SAT 98
[2024-07-08] MEDS ORDERED: MAGNESIUM HYDROXIDE SUSPENSION 30 ML UDCUP PO PRN (12:00)
[2024-07-08] MEDS ORDERED: HYDROCODONE/ACETAMINOPHEN 5-325 MG TABLET PO PRN (12:00)
[2024-07-08] MEDS ORDERED: ZOLPIDEM TARTRATE 5 MG TABLET PO PRN (12:00)
[2024-07-08] MEDS ORDERED: ONDANSETRON HCL 4 MG/2 ML VIAL IVP PRN (12:00)
[2024-07-08] MEDS ORDERED: BISACODYL 10 MG RECTAL RECTAL SUPPOSITORY PR PRN (12:00)
[2024-07-08] MEDS ORDERED: AMMO225L14 TP (12:10)
[2024-07-08] MEDS ORDERED: MYCO500T5 PO (12:10)
[2024-07-08] MEDS ORDERED: CHOL500013 PO (12:10)
[2024-07-08] MEDS ORDERED: LISI20TA24 PO (12:10)
[2024-07-08] MEDS ORDERED: KETO15CR2 TP (12:10)
[2024-07-08] MEDS ORDERED: FEBU80TA6 PO (12:10)
[2024-07-08] MEDS: SODIUM CHLORIDE 0.9% 1,000 ML IV ONE (12:17)
[2024-07-08] MEDS: MORPHINE SULFATE 2 MG/ML SYRINGE IVP PRN (12:18)
[2024-07-08] MEDS: SODIUM BICARBONATE 75 MEQ in SODIUM CHLORIDE 0.45% 1,000 ML IV ONE (14:12)
[2024-07-08 15:30] VITALS: BP 105/55; PULSE 68; RESP 18; TEMP 98.6; O2SAT 98
[2024-07-08] MEDS: HEPARIN SODIUM,PORCINE 5,000 UNITS/ML VIAL SQ SCH (15:43)
[2024-07-08 17:04] LABS: ALCOHOL, URINE DRUG SCREEN NEGATIVE (NEGATIVE); AMPHET/METH SCREEN,URINE NEGATIVE (NEGATIVE); BARBITURATE SCREEN, URINE NEGATIVE (NEGATIVE); BENZODIAZEPINES SCREEN,URINE NEGATIVE (NEGATIVE); CANNABINOID SCREEN,URINE NEGATIVE (NEGATIVE); COCAINE SCREEN,URINE NEGATIVE (NEGATIVE); METHADONE SCREEN, URINE NEGATIVE (NEGATIVE); OPIATE SCREEN,URINE NEGATIVE (NEGATIVE); PHENCYCLIDINE SCREEN,URINE NEGATIVE (NEGATIVE)
[2024-07-08] MEDS: DOCUSATE SODIUM 100 MG CAPSULE PO SCH (20:23)
[2024-07-08] MEDS: ATORVASTATIN CALCIUM 40 MG TABLET PO SCH (20:24)
[2024-07-08 21:10] VITALS: BP 133/77; PULSE 76; RESP 19; TEMP 97.8; O2SAT 100
[2024-07-09 00:23] VITALS: BP 105/74; PULSE 79; RESP 18; TEMP 97.9; O2SAT 99
[2024-07-09 04:00] VITALS: BP 95/65; PULSE 83; RESP 19; TEMP 97.9; O2SAT 100
[2024-07-09 07:14] LABS: BASOPHILS % (AUTO) 0.6 % (0.0-2.0); EOSINOPHILS % (AUTO) 0.3 % (1.0-6.0); HEMATOCRIT 36.9 % (36-46); HEMOGLOBIN 12.2 g/dL (12.0-16.0); LYMPHOCYTES # (AUTO) 1.6 K/uL (1.0-4.8); MEAN CORPUSCULAR HEMOGLOBIN 30.7 pg (26.0-34.0); MEAN CORPUSCULAR VOLUME 93 fL (80-100); MONOCYTES # (AUTO) 0.6 K/uL (0.1-1.0); MONOCYTES % (AUTO) 13.3 % (2.0-9.0); NEUTROPHILS % (AUTO) 47.8 % (40.0-70.0); PLATELET COUNT (AUTO) 249 K/uL (150-450); RED BLOOD CELL COUNT(AUTO) 3.97 MIL/uL (4.00-5.20); RED CELL DISTRIBUTION WIDTH 12.6 % (11.5-14.5); WHITE BLOOD COUNT (AUTO) 4.2 K/uL (4.5-11.0)
[2024-07-09 07:38] LABS: CALCIUM, TOTAL 8.7 mg/dL (8.8-10.5); CREATININE 2.36 mg/dL (0.60-1.30); MAGNESIUM 1.9 mg/dL (1.80-2.40); POTASSIUM 3.8 mmol/L (3.5-5.1)
[2024-07-09] MEDS: ACETAMINOPHEN 325 MG TABLET PO PRN (08:02)
[2024-07-09] MEDS: PANTOPRAZOLE SODIUM 40 MG DR TABLET PO SCH (08:03)
[2024-07-09 08:08] VITALS: BP 96/68; PULSE 60; RESP 18; TEMP 98.1; O2SAT 99
[2024-07-09 12:17] VITALS: BP 109/67; PULSE 66; RESP 18; TEMP 98.8; O2SAT 100
[2024-07-09] MEDS: SODIUM BICARBONATE 75 MEQ in SODIUM CHLORIDE 0.45% 1,000 ML IV ONE (13:57)
[2024-07-09 16:08] VITALS: BP 113/67; PULSE 69; RESP 18; TEMP 98.1; O2SAT 98
[2024-07-09 19:46] VITALS: BP 125/67; PULSE 75; RESP 18; TEMP 98.4; O2SAT 100
[2024-07-09] MEDS: PANTOPRAZOLE SODIUM 40 MG/VIAL IVP SCH (20:19)
[2024-07-09] MEDS ORDERED: DEXTROSE 5%-0.45% SODIUM CHL 1,000 ML IV PRN (23:55)
[2024-07-10 00:02] VITALS: BP 114/67; PULSE 67; RESP 18; TEMP 98.1; O2SAT 98
[2024-07-10 03:39] VITALS: BP 101/60; PULSE 68; RESP 18; TEMP 98.1; O2SAT 99
[2024-07-10 07:14] LABS: BASOPHILS % (AUTO) 0.6 % (0.0-2.0); EOSINOPHILS % (AUTO) 0.2 % (1.0-6.0); HEMATOCRIT 34.3 % (36-46); HEMOGLOBIN 11.6 g/dL (12.0-16.0); LYMPHOCYTES # (AUTO) 1.9 K/uL (1.0-4.8); LYMPHOCYTES % (AUTO) 44.5 % (22.0-44.0); MEAN CORPUSCULAR HEMOGLOBIN 30.9 pg (26.0-34.0); MEAN CORPUSCULAR HGB CONC 33.9 G/dL (31.0-37.0); MEAN CORPUSCULAR VOLUME 91 fL (80-100); MONOCYTES # (AUTO) 0.6 K/uL (0.1-1.0); MONOCYTES % (AUTO) 13.6 % (2.0-9.0); NEUTROPHILS # (AUTO) 1.7 K/uL (1.8-7.7); NEUTROPHILS % (AUTO) 41.1 % (40.0-70.0); PLATELET COUNT (AUTO) 229 K/uL (150-450); RED BLOOD CELL COUNT(AUTO) 3.77 MIL/uL (4.00-5.20); RED CELL DISTRIBUTION WIDTH 12.6 % (11.5-14.5); WHITE BLOOD COUNT (AUTO) 4.3 K/uL (4.5-11.0)
[2024-07-10 07:26] LABS: CALCIUM, TOTAL 8.6 mg/dL (8.8-10.5); CREATININE 2.17 mg/dL (0.60-1.30); POTASSIUM 3.7 mmol/L (3.5-5.1)
[2024-07-10 08:30] VITALS: BP 95/61; PULSE 82; RESP 19; TEMP 98.1; O2SAT 98
[2024-07-10 11:24] VITALS: BP 120/80; PULSE 72; RESP 19; TEMP 98.3; O2SAT 100
[2024-07-10] MEDS ORDERED: PROPOFOL 1% 20 ML VIAL IVP ONE (12:00)
[2024-07-10] MEDS ORDERED: LIDOCAINE/PF 2% 5 ML VIAL ONE (12:00)
[2024-07-10] MEDS ORDERED: SODIUM CHLORIDE 0.9% 1,000 ML ONE (13:26)
[2024-07-10 16:08] VITALS: BP 117/74; PULSE 67; RESP 18; TEMP 98.1; O2SAT 99
[2024-07-10 19:43] VITALS: BP 125/74; PULSE 78; RESP 18; TEMP 98.4; O2SAT 99
[2024-07-10] MEDS: SODIUM BICARBONATE 650 MG TABLET PO SCH (20:18)
[2024-07-11 00:16] VITALS: BP 108/68; PULSE 74; RESP 18; TEMP 97.7; O2SAT 99
[2024-07-11 05:32] VITALS: BP 112/66; PULSE 63; RESP 18; TEMP 97.9; O2SAT 99
[2024-07-11 06:59] LABS: BASOPHILS % (AUTO) 0.2 % (0.0-2.0); EOSINOPHILS % (AUTO) 0.2 % (1.0-6.0); HEMATOCRIT 34.9 % (36-46); HEMOGLOBIN 11.8 g/dL (12.0-16.0); LYMPHOCYTES # (AUTO) 2.3 K/uL (1.0-4.8); LYMPHOCYTES % (AUTO) 50.6 % (22.0-44.0); MEAN CORPUSCULAR HEMOGLOBIN 30.9 pg (26.0-34.0); MEAN CORPUSCULAR HGB CONC 33.7 G/dL (31.0-37.0); MEAN CORPUSCULAR VOLUME 92 fL (80-100); MONOCYTES # (AUTO) 0.6 K/uL (0.1-1.0); MONOCYTES % (AUTO) 14.4 % (2.0-9.0); NEUTROPHILS # (AUTO) 1.6 K/uL (1.8-7.7); NEUTROPHILS % (AUTO) 34.6 % (40.0-70.0); PLATELET COUNT (AUTO) 228 K/uL (150-450); RED CELL DISTRIBUTION WIDTH 12.7 % (11.5-14.5); WHITE BLOOD COUNT (AUTO) 4.5 K/uL (4.5-11.0)
[2024-07-11 07:15] LABS: CALCIUM, TOTAL 8.9 mg/dL (8.8-10.5); CREATININE 1.91 mg/dL (0.60-1.30); POTASSIUM 4.2 mmol/L (3.5-5.1)
[2024-07-11 08:27] VITALS: BP 116/70; PULSE 64; RESP 17; TEMP 98.4; O2SAT 99
[2024-07-11 11:48] VITALS: BP 108/64; PULSE 71; RESP 19; TEMP 98.1; O2SAT 99
[2024-07-11] MEDS ORDERED: SODI650T33 PO (11:56)
[2024-07-11] MEDS ORDERED: PANT-31 PO (11:56)
[2024-07-11] MEDS ORDERED: ONDA-104 PO (11:56)
[2024-07-11 12:00] VITALS: BP 118/78; PULSE 68; RESP 18; TEMP 98.1; O2SAT 98
== END 2024-07-11 15:00 | disposition home or self-care (01) | DRG 241 ==
LOC: EMS 17:45 → CANBEDREQ 07-08 06:20 → EDH 07-08 08:14 → 5S 07-08 09:26
PROVIDERS: ADMIT Internal Medicine; ATTEND Internal Medicine
PROC: 0DB78ZX Excision of Stomach, Pylorus, Via Natural or Artificial Opening Endoscopic, Diagnostic (ICD-10-PCS; principal; 2024-07-10 15:00)
DX: K29.80 Duodenitis without bleeding (principal); N17.0 Acute kidney failure with tubular necrosis; E87.20 Acidosis, unspecified; E11.22 Type 2 diabetes mellitus with diabetic chronic kidney disease; E87.1 Hypo-osmolality and hyponatremia; K57.30 Diverticulosis of large intestine without perforation or abscess without bleeding; K29.70 Gastritis, unspecified, without bleeding; K20.90 Esophagitis, unspecified without bleeding; I50.9 Heart failure, unspecified; E86.0 Dehydration; N18.4 Chronic kidney disease, stage 4 (severe); E66.01 Morbid (severe) obesity due to excess calories; Z68.36 Body mass index [BMI] 36.0-36.9, adult; I13.0 Hypertensive heart and chronic kidney disease with heart failure and stage 1 through stage 4 chronic kidney disease, or unspecified chronic kidney disease; Z20.822 Contact with and (suspected) exposure to COVID-19; E87.5 Hyperkalemia; E87.6 Hypokalemia; E78.5 Hyperlipidemia, unspecified; I25.10 Atherosclerotic heart disease of native coronary artery without angina pectoris; R80.9 Proteinuria, unspecified
CPT/HCPCS: 74176; 76705; 76770; 80048; 80076; 80307; 81001; 82271; 83735; 84100; 85025; 87045; 87804; 88305; 89055; 93005; 96374; 99285; G0378; J1644; J2270; J2470; J2704; J3490; J7030

== ENCOUNTER 2024-12-27 14:46 | Inpatient (IN) | payer OTHER ==
[~2024-12-27] VITALS: Ht 152.4 cm; Wt 84.0 kg
[~2024-12-27 14:46] MED LIST changes: -ACET-66 PO; -AMLO-257 PO; +AZIT-167 PO; +BENZ-227 PO; +CHOL500013 PO; -DULO-114 PO; -OMEP-148 PO; -PRED-554 PO; -SEMA0.258 SQ; -SODI5POW3 PO
[2024-12-27] MEDS ORDERED: NORT10CA2 PO (14:59)
[2024-12-27] MEDS ORDERED: TIRZ12.5 SQ (14:59)
[2024-12-27] MEDS ORDERED: SEMA2PEN SQ (14:59)
[2024-12-27] MEDS ORDERED: MYCO500T5 PO (14:59)
[2024-12-27] MEDS ORDERED: FURO40TA6 PO (14:59)
[2024-12-27] MEDS ORDERED: EMPA10TA3 PO (14:59)
[2024-12-27] MEDS ORDERED: SODI5POW3 PO (14:59)
[2024-12-27 15:02] LABS: COVID AG,FIA SOURCE NASAL SWAB
[2024-12-27 15:32] LABS: SARS-COV2 (COVID) ANTIGEN,FIA Negative (Negative)
[2024-12-27 15:34] LABS: PLATELET COUNT (AUTO) 310 K/uL (150-450); RED BLOOD CELL COUNT(AUTO) 4.96 MIL/uL (4.00-5.20); RED CELL DISTRIBUTION WIDTH 13.0 % (11.5-14.5); WHITE BLOOD COUNT (AUTO) 8.6 K/uL (4.5-11.0)
[2024-12-27 15:34] LABS: INFLUENZA TYPE A NEGATIVE FOR TYPE A (NEGATIVE); INFLUENZA TYPE B NEGATIVE FOR TYPE B (NEGATIVE)
[2024-12-27 15:43] LABS: CALCIUM, TOTAL 9.5 mg/dL (8.8-10.5); CREATININE 2.95 mg/dL (0.60-1.30); GLOMERULAR FILTR. RATE CALC 17.0 mL/min (>60); GLUCOSE,RANDOM 90.0 mg/dL (70-110); SODIUM SERUM 138.0 mmol/L (136-145); UREA NITROGEN, BLOOD 100.0 mg/dL (7-18)
[2024-12-27 15:49] LABS: ASPARTATE AMINOTRANSFERASE 15.0 U/L (15-37); TOTAL PROTEIN, SERUM 8.1 g/dL (6.4-8.2)
[2024-12-27] MEDS ORDERED: LID5O TP (16:03)
[2024-12-27] MEDS ORDERED: PRED-729 PO (16:03)
[2024-12-27] MEDS ORDERED: CETI10TA58 PO (16:03)
[2024-12-27] MEDS ORDERED: FLUT16H NASAL (16:03)
[2024-12-27] MEDS ORDERED: LISI20TA24 PO (16:06)
[2024-12-27] MEDS ORDERED: LIDO700A30 TD (16:06)
[2024-12-27] MEDS ORDERED: CALC0.253 PO (16:06)
[2024-12-27] MEDS ORDERED: ROSU40TA88 PO (16:06)
[2024-12-27 16:15] LABS: TROPONIN I-HIGH SENSITIVITY 9 ng/L (<51)
[2024-12-27] MEDS: ONDANSETRON HCL 4 MG/2 ML VIAL IVP ONE (16:39)
[2024-12-27] MEDS: SODIUM CHLORIDE 0.9% 500 ML IV ONE (17:09)
[2024-12-27] MEDS ORDERED: ONDANSETRON HCL 4 MG/2 ML VIAL IVP PRN (18:00)
[2024-12-27] MEDS ORDERED: MORPHINE SULFATE 4 MG/ML SYRINGE IVP PRN (18:00)
[2024-12-27] MEDS ORDERED: FLUTICASONE PROPIONATE 50 MCG/SPRAY 16 GM NASAL SPRAY NASAL PRN (18:00)
[2024-12-27] MEDS ORDERED: HYDROCODONE/ACETAMINOPHEN 5-325 MG TABLET PO PRN (18:00)
[2024-12-27] MEDS ORDERED: BISACODYL 10 MG RECTAL RECTAL SUPPOSITORY PR PRN (18:00)
[2024-12-27] MEDS ORDERED: ZOLPIDEM TARTRATE 5 MG TABLET PO PRN (18:00)
[2024-12-27] MEDS ORDERED: CETIRIZINE HCL 10 MG TABLET PO PRN (18:00)
[2024-12-27] MEDS ORDERED: MAGNESIUM HYDROXIDE SUSPENSION 30 ML UDCUP PO PRN (18:00)
[2024-12-27] MEDS ORDERED: IPRATROPIUM BROMIDE 0.5 MG/2.5 ML NEB SOLUTION NEB PRN (18:00)
[2024-12-27] MEDS ORDERED: ALBUTEROL SULFATE 2.5 MG/0.5 ML NEB SOLUTION NEB PRN (18:00)
[2024-12-27 18:35] LABS: APPEARANCE,URINE CLEAR (CLEAR); GLUCOSE, URINE (UA) 70-100 mg/dL (NEGATIVE); LEUKOCYTE ESTERASE ,URINE SMALL (NEGATIVE); NITRATE,URINE NEGATIVE (NEGATIVE); OCCULT BLOOD,URINE NEGATIVE (NEGATIVE); SPECIFIC GRAVITIY, URINE 1.010 (1.003-1.030)
[2024-12-27 18:37] VITALS: BP 122/77; PULSE 80; RESP 19; TEMP 98.8; O2SAT 100
[2024-12-27 18:49] LABS: SQUAMOUS EPITHELIAL CELL,UR Moderate /LPF (None Seen)
[2024-12-27] MEDS ORDERED: INFLUENZA VIRUS VACCINE TVS (6MO+) 2025-26/PF 45 MCG/0.5 ML SYRINGE IM. ONE (19:15)
[2024-12-27] MEDS: ROSUVASTATIN CALCIUM 20 MG TABLET PO SCH (20:43)
[2024-12-27 20:49] VITALS: BP 122/73; PULSE 80; RESP 18; TEMP 98.4; O2SAT 99
[2024-12-27] MEDS: HEPARIN SODIUM,PORCINE 5,000 UNITS/ML VIAL SQ SCH (23:52)
[2024-12-28] MEDS: SODIUM CHLORIDE 0.9% 1,000 ML IV SCH (02:51)
[2024-12-28 06:03] VITALS: BP 106/57; PULSE 67; RESP 18; TEMP 98.1; O2SAT 100
[2024-12-28] MEDS: PANTOPRAZOLE SODIUM 40 MG DR TABLET PO SCH (08:19)
[2024-12-28] MEDS: SODIUM ZIRCONIUM CYCLOSILICATE 5 GM POWDER PACKET PO SCH (08:19)
[2024-12-28 08:37] VITALS: BP 111/65; PULSE 79; RESP 18; TEMP 98.1; O2SAT 100
[2024-12-28 16:51] VITALS: BP 109/67; PULSE 86; RESP 18; TEMP 97.9; O2SAT 99
[2024-12-28 20:32] VITALS: BP 106/70; PULSE 79; RESP 18; TEMP 98.2; O2SAT 98
[2024-12-29 04:26] VITALS: BP 121/68; PULSE 72; RESP 18; TEMP 77.9; TEMP 97.9; O2SAT 99
[2024-12-29] MEDS: ACETAMINOPHEN 325 MG TABLET PO PRN (04:59)
[2024-12-29 07:18] VITALS: BP 128/103; PULSE 69; RESP 20; TEMP 98.2; O2SAT 100
[2024-12-29 11:23] LABS: CALCIUM, TOTAL 8.3 mg/dL (8.8-10.5); CREATININE 1.86 mg/dL (0.60-1.30); GLOMERULAR FILTR. RATE CALC 28.0 mL/min (>60); GLUCOSE,RANDOM 86.0 mg/dL (70-110); PHOSPHORUS 2.6 mg/dL (2.5-4.9); SODIUM SERUM 139.0 mmol/L (136-145); UREA NITROGEN, BLOOD 52.0 mg/dL (7-18)
[2024-12-29 15:25] VITALS: BP 131/80; PULSE 73; RESP 20; TEMP 98.2; O2SAT 100
[2024-12-29 20:37] VITALS: BP 139/78; PULSE 75; RESP 18; TEMP 98.6; O2SAT 96
[2024-12-30 00:07] LABS: HEPATITIS C AB (EIA) Non Reactive (Non Reactive)
[2024-12-30 04:37] VITALS: BP 125/65; PULSE 68; RESP 18; TEMP 97.7; O2SAT 98
[2024-12-30 07:06] LABS: CALCIUM, TOTAL 9.0 mg/dL (8.8-10.5); CREATININE 1.64 mg/dL (0.60-1.30); GLOMERULAR FILTR. RATE CALC 33.0 mL/min (>60); GLUCOSE,RANDOM 99.0 mg/dL (70-110); SODIUM SERUM 139.0 mmol/L (136-145); UREA NITROGEN, BLOOD 42.0 mg/dL (7-18)
[2024-12-30 07:09] LABS: PHOSPHORUS 3.1 mg/dL (2.5-4.9)
[2024-12-30 08:45] VITALS: BP 135/74; PULSE 70; RESP 18; TEMP 98.4; O2SAT 99
[2024-12-30 09:31] LABS: PLATELET COUNT (AUTO) 261 K/uL (150-450); RED BLOOD CELL COUNT(AUTO) 4.65 MIL/uL (4.00-5.20); RED CELL DISTRIBUTION WIDTH 12.4 % (11.5-14.5); WHITE BLOOD COUNT (AUTO) 4.1 K/uL (4.5-11.0)
[2024-12-30] MEDS: MAGNESIUM OXIDE 400 MG TABLET PO ONE (15:47)
[2024-12-30 16:14] VITALS: BP 136/78; PULSE 79; RESP 18; TEMP 98.4; O2SAT 99
[2024-12-30 17:26] LABS: GLUCOMETER DEV NAME(LOC) 6N.1C; GLUCOSE,POINT OF CARE 134 MG/DL (70-110)
== END 2024-12-30 16:48 | disposition home or self-care (01) | DRG 469 ==
LOC: EMS 14:46 → EDH 16:37 → 4E 18:37
PROVIDERS: ADMIT Hospitalist; ATTEND Hospitalist
DX: N17.9 Acute kidney failure, unspecified (principal); D63.1 Anemia in chronic kidney disease; I13.0 Hypertensive heart and chronic kidney disease with heart failure and stage 1 through stage 4 chronic kidney disease, or unspecified chronic kidney disease; I50.9 Heart failure, unspecified; K52.9 Noninfective gastroenteritis and colitis, unspecified; E86.0 Dehydration; E11.22 Type 2 diabetes mellitus with diabetic chronic kidney disease; E66.9 Obesity, unspecified; E87.5 Hyperkalemia; N18.4 Chronic kidney disease, stage 4 (severe); M10.9 Gout, unspecified; Z20.822 Contact with and (suspected) exposure to COVID-19; Z68.36 Body mass index [BMI] 36.0-36.9, adult; Z83.3 Family history of diabetes mellitus; Z87.59 Personal history of other complications of pregnancy, childbirth and the puerperium; Z79.899 Other long term (current) drug therapy
CPT/HCPCS: 71045; 76770; 80048; 80076; 81001; 82962; 83735; 83880; 84100; 84484; 85025; 86803; 87340; 87804; 93005; 96374; 99285; G0378; J1644; J2405; J7030; J7040; 36415-L1; 36415-TC